=== PATIENT | female | born 1985 | race Caucasian/White ===

== ENCOUNTER 2019-06-07 21:34 | Emergency (ER) | payer OTHER ==
[2019-06-07] MEDS ORDERED: PROMETHAZINE 25 MG/ML VIAL ONE (22:04)
[2019-06-07] MEDS ORDERED: MEPERIDINE HCL 25 MG/0.5 ML ONE ×2 (22:04→23:10)
[2019-06-07] MEDS ORDERED: NA CHLORIDE 0.9% 1,000 ML ONE (22:05)
[2019-06-07 22:20] LABS: Absolute Lymphocytes (CBC) 2.2 K/uL (0.7-4.9); Basophils % 1.2 % (0-1.3); Hematocrit 42.4 % (36.0-45.0); Lymphocytes % 24.4 % (15.3-44.8); MPV 10.2 fL (7.6-11.3); RBC Red Blood Cell Count 4.54 M/uL (3.86-4.86)
[2019-06-07 22:44] LABS: ALT/SGPT 36 U/L (12-78); AST/SGOT 25 U/L (15-37); Albumin 4.3 g/dL (3.4-5.0); Alkaline Phosphatase 97 U/L (45-117); BUN Blood Urea Nitrogen 13 mg/dL (7-18); Bicarbonate 27 mmol/L (21-32); Bilirubin Direct < 0.1 mg/dL (0-0.2); Bilirubin Total 0.3 mg/dL (0.2-1.0); Glucose Level 104 mg/dL (74-106); Lipase 101 U/L (73-393); Potassium 3.8 mmol/L (3.5-5.1); Protein, Total 7.4 g/dL (6.4-8.2); Sodium Level 140 mmol/L (136-145)
[2019-06-07 23:05] LABS: Urine Blood NEGATIVE (NEG); Urine Glucose NEGATIVE (NEG); Urine Protein NEGATIVE (NEG)
--- NOTE | 2019-06-08 00:44 | ER ---
Nurse's Notes [facility] Name: Emma De La Cruz Age: 33 yrs Sex: Female : 1985 Arrival Date: 06/07/2019 Time: 21:37 Bed 27 Private MD: Diagnosis: Right upper quadrant abdominal tenderness;Right upper quadrant pain Presentation: 06/07 21:49 Presenting complaint: states: She has gallstones and started having pain today aj1 at 1930. Reports RUQ pain, denies vomiting. Reports that she has been unable to follow up with a surgeon yet. Transition of care: patient was not received from another setting of care. Onset of symptoms was June 07, 2019 at 19:30. Risk Assessment: Do you want to hurt yourself or someone else? Patient reports no desire to harm self or others. Initial Sepsis Screen: Does the patient meet any 2 criteria? HR > 90 bpm. No. Patient's initial sepsis screen is negative. Does the patient have a suspected source of infection? Yes: Acute abdominal pain. Care prior to arrival: None. 21:49 Method Of Arrival: Wheelchair aj 21:49 Acuity: ANDRÉS 3 aj1 Triage Assessment: 21:54 General: Appears uncomfortable, Behavior is cooperative, anxious, restless. Pain: aj1 Complains of pain in right upper quadrant Pain currently is 10 out of 10 on a pain scale. Neuro: Level of Consciousness is awake, alert, obeys commands. Cardiovascular: Patient's skin is warm and dry. Respiratory: Airway is patent Respiratory effort is even, unlabored, Respiratory pattern is regular, symmetrical. GI: Reports upper abdominal pain, nausea. Historical: - Allergies: 21:54 Sulfa (Sulfonamide Antibiotics); aj1 - Home Meds: 21:54 Lamictal Oral [Active]; Lexapro Oral [Active]; aj1 - PMHx: 21:54 Seizures; gallstones; aj1 - Immunization history:: Flu vaccine is not up to date. - Social history:: Smoking status: Patient/guardian denies using tobacco. - Ebola Screening: : Patient denies travel to an Ebola-affected area in the 21 days before illness onset. Screenin:01 Abuse screen: Denies threats or abuse. Denies injuries from another. Nutritional mg2 screening: No deficits noted. Tuberculosis screening: No symptoms or risk factors identified. Fall Risk IV access (20 points). Assessment: 22:16 General: Appears uncomfortable, Behavior is crying, restless. Pain: Complains of pain tr5 in right upper quadrant Pain currently is 10 out of 10 on a pain scale. Quality of pain is described as crampy, Pain began 2 hours ago. Is continuous. Neuro: Level of Consciousness is awake, alert, obeys commands, Oriented to person, place, time, Weed Inspector are equal bilaterally Moves all extremities. Cardiovascular: Heart tones present Capillary refill < 3 seconds. Respiratory: Airway is patent Respiratory effort is even, unlabored, Respiratory pattern is regular, symmetrical. GI: Reports upper abdominal pain. : No signs and/or symptoms were reported regarding the genitourinary system. EENT: No signs and/or symptoms were reported regarding the EENT system. Derm: No signs and/or symptoms reported regarding the dermatologic system. Musculoskeletal: No signs and/or symptoms reported regarding the musculoskeletal system. 23:50 Reassessment: Patient appears in no apparent distress at this time. Patient and/or tr5 family updated on plan of care and expected duration. Pain level reassessed. Patient is alert, oriented x 3, equal unlabored respirations, skin warm/dry/pink. Patient states feeling better. 06/08 00:52 Reassessment: Patient appears in no apparent distress at this time. No changes from tr5 previously documented assessment. Patient and/or family updated on plan of care and expected duration. Pain level reassessed. Patient is alert, oriented x 3, equal unlabored respirations, skin warm/dry/pink. Vital Signs: 06/07 21:54 BP 125 / 88; Pulse 107; Resp 22; Temp 97.7; Pulse Ox 98% on R/A; Weight 83.01 kg (R); aj1 Height 5 ft. 9 in. (175.26 cm) (R); Pain 05/28; 23:48 BP 102 / 70; Pulse 100; Resp 18; Pulse Ox 99% on R/A; tr5 06/08 00:51 BP 101 / 70; Pulse 98; Resp 18; Pulse Ox 98% on R/A; tr5 06/07 21:54 Body Mass Index 27.02 (83.01 kg, 175.26 cm) [facility] ED Course: 06/07 21:37 Patient arrived in ED. ds1 21:50 Triage completed. aj1 21:54 Arm band placed on Patient placed in an exam room. aj1 21:59 Richard Bush PA is PHCP. jr8 21:59 Lennox Vasquez MD is Attending Physician. jr8 22:00 Anam Mcpherson, RN is Primary Nurse. tr5 22:00 No provider procedures requiring assistance completed. Inserted saline lock: 20 gauge mg2 in right forearm, using aseptic technique. Blood collected. 22:16 Bed in low position. Call light in reach. Side rails up X 1. Adult w/ patient. tr5 22:51 Ultrasound completed. Patient tolerated well. Notified HEAT AND FROST INSULATOR/PA . sg3 22:51 US Abdomen Limited In Process Unspecified. EDMS 22:57 Radiology exam delayed due to test not completed at this time. bq 23:[address] tr5 23:39 CT Abd/Pelvis - IV Contrast Only In Process Unspecified. EDMS 06/08 00:42 Phu Bonds MD is Referral Physician. jr8 01:03 IV discontinued. tr5 Administered Medications: 06/07 22:16 Drug: Demerol 25 mg {Note: RASS:0.} Route: IVP; Site: right antecubital; tr5 22:45 Follow up: Response: Pain is decreased; RASS: Alert and Calm (0) tr5 22:16 Drug: Phenergan 12.5 mg Route: IVP; Site: right antecubital; tr5 22:45 Follow up: Response: Nausea is decreased tr5 22:16 Drug: NS 0.9% 1000 ml Route: IV; Rate: 1000 ml; Site: right antecubital; tr5 23:13 Drug: Demerol 25 mg Route: IVP; Site: right forearm; mg2 06/08 01:03 Follow up: Response: Pain is decreased; RASS: Alert and Calm (0) tr5 01:04 Drug: Demerol 25 mg Route: IVP; Site: right antecubital; tr5 Outcome: 00:43 Discharge ordered by . jr8 01:02 Discharged to home ambulatory, with family. tr5 01:02 Condition: stable 01:02 Discharge instructions given to patient, family, Instructed on discharge instructions, follow up and referral plans. medication usage, Demonstrated understanding of instructions, follow-up care, medications. 01:12 Patient left the ED. tr5 Signatures: Dispatcher [employer] EDMargo Morales RN RN [email or web address] Char Luo Demi ds1 Richard Bush PA PA 8 Evelia Mujica sg3 John Soto RN RN mg2 Anam Mcpherson RN RN tr5
--- NOTE | 2019-06-08 00:45 | EDPHYS ---
Physician Documentation [facility] Name: Emma De La Cruz Age: 33 yrs Sex: Female : 1985 Arrival Date: 06/07/2019 Time: 21:37 Bed 27 Private MD: ED Physician Lennox Vasquez HPI: 06/07 22:15 This 33 yrs old Female presents to ER via Wheelchair with complaints of jr8 Gallstones, Gallbladder Pain. 22:15 The patient presents with abdominal pain in the upper abdomen, in the right upper jr8 quadrant. Onset: The symptoms/episode began/occurred acutely, today. The symptoms do not radiate. Associated signs and symptoms: Pertinent positives: nausea and vomiting. The symptoms are described as stabbing. Modifying factors: The symptoms are alleviated by nothing, the symptoms are aggravated by food. Severity of pain: At its worst the pain was severe in the emergency department the pain is unchanged. The patient has experienced a previous episode, but today's symptoms are worse. The patient has not recently seen a physician. Patient stated that she has history of gallstones about one year ago diagnosed with US. Has been fine since then and had not followed up. Mary had dinner. A little while after had sudden severe RUQ abdominal pain without any relief . Historical: - Allergies: 21:54 Sulfa (Sulfonamide Antibiotics); aj1 - Home Meds: 21:54 Lamictal Oral [Active]; Lexapro Oral [Active]; aj1 - PMHx: 21:54 Seizures; gallstones; aj1 - Immunization history:: Flu vaccine is not up to date. - Social history:: Smoking status: Patient/guardian denies using tobacco. - Ebola Screening: : Patient denies travel to an Ebola-affected area in the 21 days before illness onset. ROS: 22:15 Constitutional: Negative for body aches, fever. jr8 22:15 Abdomen/GI: Positive for abdominal pain, nausea and vomiting, Negative for diarrhea. 22:15 All other systems are negative. Exam: 22:15 Eyes: Pupils equal round and reactive to light, extra-ocular motions intact. Lids and jr8 lashes normal. Conjunctiva and sclera are non-icteric and not injected. Cornea within normal limits. Periorbital areas with no swelling, redness, or edema. ENT: Nares patent. No nasal discharge, no septal abnormalities noted. Tympanic membranes are normal and external auditory canals are clear. Oropharynx with no redness, swelling, or masses, exudates, or evidence of obstruction, uvula midline. Mucous membranes moist. Neck: Trachea midline, no thyromegaly or masses palpated, and no cervical lymphadenopathy. Supple, full range of motion without nuchal rigidity, or vertebral point tenderness. No Meningismus. Cardiovascular: Regular rate and rhythm with a normal S1 and S2. No gallops, murmurs, or rubs. Normal PMI, no JVD. No pulse deficits. Respiratory: Lungs have equal breath sounds bilaterally, clear to auscultation and percussion. No rales, rhonchi or wheezes noted. No increased work of breathing, no retractions or nasal flaring. Back: No spinal tenderness. No costovertebral tenderness. Full range of motion. Skin: Warm, dry with normal turgor. Normal color with no rashes, no lesions, and no evidence of cellulitis. MS/ Extremity: Pulses equal, no cyanosis. Neurovascular intact. Full, normal range of motion. Neuro: Awake and alert, GCS 15, oriented to person, place, time, and situation. Cranial nerves II-XII grossly intact. Motor strength 5/5 in all extremities. Sensory grossly intact. Cerebellar exam normal. Normal gait. 22:15 Constitutional: The patient appears alert, awake, in obvious distress, in obvious pain. 22:15 Abdomen/GI: Inspection: abdomen appears normal, Bowel sounds: active, all quadrants, Palpation: soft, in all quadrants, moderate abdominal tenderness, in the epigastric area, severe abdominal tenderness, in the right upper quadrant, voluntary guarding, is elicited in the right upper quadrant, no appreciated organomegaly, Indicators: McBurney's point is not tender, Berkowitz's sign is positive, Rovsing's sign is negative. Vital Signs: 21:54 BP 125 / 88; Pulse 107; Resp 22; Temp 97.7; Pulse Ox 98% on R/A; Weight 83.01 kg (R); aj1 Height 5 ft. 9 in. (175.26 cm) (R); Pain 10; 23:48 BP 102 / 70; Pulse 100; Resp 18; Pulse Ox 99% on R/A; tr5 06/08 00:51 BP 101 / 70; Pulse 98; Resp 18; Pulse Ox 98% on R/A; tr5 06/07 21:54 Body Mass Index 27.02 (83.01 kg, 175.26 cm) aj1 MDM: 06/07 22:00 Patient medically screened. jr8 06/08 00:36 Data reviewed: vital signs, nurses notes, lab test result(s), radiologic studies, CT jr8 scan, ultrasound. Data interpreted: Pulse oximetry: on room air is 99 %. Interpretation: normal. Counseling: I had a detailed discussion with the patient and/or guardian regarding: the historical points, exam findings, and any diagnostic results supporting the discharge/admit diagnosis, lab results, radiology results, the need for outpatient follow up, a general surgeon, a adjunct lecturer, to return to the emergency department if symptoms worsen or persist or if there are any questions or concerns that arise at home. Response to treatment: the patient's symptoms have markedly improved after treatment. ED course: Detailed discussion with patient and that US, CT, and Labs were essentially unremarkable. That her past US showed stone which could have come out but no CBD dilation or labs to show blockage. Recommend HIDA scan at this point. Still GB is most likely cause of pain. Discussed with them that you can have a GB contractility problem that causes the pain that she felt tonight. Recommend GI and surgery f/u. Clear liquid diet for next couple of days to let pain settle down. Patient good with this and knows to come back if worse . 06/07 21:59 Order name: Basic Metabolic Panel; Complete Time: 22:50 [facility] 06/07 21:59 Order name: CBC with Diff; Complete Time: 22:50 8 06/07 21:59 Order name: Creatinine for Radiology; Complete Time: 22:50 8 06/07 21:59 Order name: Hepatic Function; Complete Time: 22:50 8 06/07 21:59 Order name: Lipase; Complete Time: 22:50 [facility] 06/07 22:59 Order name: Urine Dipstick--Ancillary (enter results); Complete Time: 23:15 mw2 06/07 21:59 Order name: US Abdomen Limited 06/07 22:52 Order name: CT Abd/Pelvis - IV Contrast Only [facility] 06/07 22:59 Order name: Urine --Ancillary (enter results); Complete Time: 23:15 mw2 06/07 21:59 Order name: IV Saline Lock; Complete Time: 22:00 jr8 06/07 21:59 Order name: Labs collected and sent; Complete Time: 22:00 jr8 06/07 21:59 Order name: Urine Test (obtain specimen); Complete Time: 22:58 jr8 06/07 21:59 Order name: Urine Dipstick-Ancillary (obtain specimen); Complete Time: 22:58 jr8 Administered Medications: 06/07 22:16 Drug: Demerol 25 mg {Note: RASS:0.} Route: IVP; Site: right antecubital; tr5 22:45 Follow up: Response: Pain is decreased; RASS: Alert and Calm (0) tr5 22:16 Drug: Phenergan 12.5 mg Route: IVP; Site: right antecubital; tr5 22:45 Follow up: Response: Nausea is decreased tr5 22:16 Drug: NS 0.9% 1000 ml Route: IV; Rate: 1000 ml; Site: right antecubital; tr5 23:13 Drug: Demerol 25 mg Route: IVP; Site: right forearm; mg2 06/08 01:03 Follow up: Response: Pain is decreased; RASS: Alert and Calm (0) tr5 01:04 Drug: Demerol 25 mg Route: IVP; Site: right antecubital; tr5 Disposition: 08:35 Co-signature as Attending Physician, Lennox Vasquez MD I agree with the assessment and naila plan of care. Disposition: 06/08/19 00:43 Discharged to Home. Impression: Right upper quadrant abdominal tenderness, Right upper quadrant pain. - Condition is Stable. - Discharge Instructions: Abdominal Pain, Adult, Biliary Colic, Adult, Gallbladder Nuclear Scan, Gallbladder Nuclear Scan, Care After. - Prescriptions for Tylenol- Codeine #3 300-30 mg Oral Tablet - take 2 tablets by ORAL route every 6 hours As needed; 12 tablet. Zofran 4 mg Oral Tablet - take 1 tablet by ORAL route every 12 hours As needed; 20 tablet. - Medication Reconciliation Form, Thank You Letter, Antibiotic Education, Prescription Opioid Use, School release form form. - Follow up: Phu Bonds MD; When: 2 - 3 days; Reason: Recheck today's complaints, Continuance of care, Re-evaluation by your physician. - Problem is new. - Symptoms have improved. Signatures: Dispatcher [employer] EDMargo Morales, RN RN aj1 Lennox Vasquez MD MD cha Roszak, Josh, PA PA jr8 John Soto RN RN mg2 Anam Mcpherson RN RN tr5 Corrections: (The following items were deleted from the chart) 01:12 00:43 06/08/2019 00:43 Discharged to Home. Impression: Right upper quadrant abdominal tr5 tenderness; Right upper quadrant pain. Condition is Stable. Forms are Medication Reconciliation Form, Thank You Letter, Antibiotic Education, Prescription Opioid Use. Follow up: Phu Bonds; When: 2 - 3 days; Reason: Recheck today's complaints, Continuance of care, Re-evaluation by your physician. Problem is new. Symptoms have improved. jr8
[2019-06-08] MEDS ORDERED: MEPERIDINE HCL 25 MG/0.5 ML ONE (00:56)
[2019-06-08] MEDS ORDERED: PROMETHAZINE 25 MG TABLET ONE (01:13)
[2019-06-08] MEDS ORDERED: ONDANSETRON 4 MG (ODT) TAB ONE (01:15)
[2019-06-08 01:18] VITALS: TEMP 97.7
[2019-06-08 01:20] VITALS: BP 101/70; O2SAT 98
--- NOTE | 2019-06-08 07:10 | RAD REPORT ---
EXAM DESCRIPTION: US - Abdomen Exam Limited - 06/07/2019 10:51 pm CLINICAL HISTORY: Abdominal pain. COMPARISON: June 07, 2019 cat scan FINDINGS: The gallbladder is distended. Vague echogenic structure within the gallbladder neck repres ents a stone. Gallbladder wall is not thickened. Common bile duct measures 6 millimeters which is upper limits normal IMPRESSION: Cholelithiasis with gallbladder distention. Common bile duct upper limits normal caliber
--- NOTE | 2019-06-08 10:10 | RAD REPORT ---
EXAM DESCRIPTION: CT - Abdomen Pelvis W Contrast - 06/08/2019 5:37 am CLINICAL HISTORY: 33-year-old female with abdominal pain TECHNIQUE: Axial CT imaging of the abdomen and pelvis was performed following the administration of intravenous contrast.. Sagittal and coronal reconstructed images were then performed. The CT stud y is performed according to ALARA (as low as reasonably achievable) or ALARA/IMAGE GENTLY, with autom atic adjustment of mA and/or kV according to patient size. Performed on: 06/07/2019 at 11:26 PM. COMPARISON: 05/20/2018 FINDINGS: Lung bases: The lung bases are clear. Liver: The liver is normal in size and configuration. No focal hepatic abnormalities are identified. Liver attenuation is within normal limits. Spleen: The spleen is normal is size, configuration and attenuation. Gallbladder and bile duct: The gallbladder is well distended and contains gallstones. There is no b iliary ductal dilatation. Pancreas: The pancreas is grossly normal in size and configuration. Adrenal Glands: The adrenal glands are normal in size and configuration. Kidneys: The kidneys are normal in size and configuration. There is no evidence of hydronephrosis. Th ere is no evidence of nephrolithiasis. No definite solid or cystic renal mass lesions are identified. Stomach: The stomach is grossly normal. There is no definite hiatal hernia. Bowel: The bowel gas pattern is non specific and non obstructive. Appendix: The appendix is normal. Free air: There is no evidence of free air. Free fluid: There is no evidence of free fluid. Vasculature: The aorta is normal in caliber and contour. The inferior vena cava is grossly unremarkab le. Lymphadenopathy: No pathologic lymphadenopathy is identified. There are a few small retroperitoneal l ymph nodes. Bladder: The bladder is well distended and smooth in contour. Reproductive: The uterus is grossly within normal limits. Bones: No acute osseous abnormalities are identified. There are sclerotic changes along the iliac por tions of the sacroiliac joints bilaterally slightly greater on the right likely reflecting osteitis c ondensans ilii. Soft tissues: No focal soft tissue abnormalities are identified. IMPRESSION: 1. Cholelithiasis without evidence of biliary ductal dilatation. 2. Bilateral osteitis condensans ilii. 3. Otherwise, unremarkable contrast-enhanced CT scan of the abdomen and pelvis. There is no evidence of acute intra-abdominal or intrapelvic pathology. Electronically signed by: Mary Heller DO 06/07/2019 11:54 PM CDT Due to temporary technical issues with the PACS/Fluency reporting system, reports are being signed by the in house radiologist as a courtesy to ensure prompt reporting. The interpreting radiologist is f ully responsible for the content of the report.
== END 2019-06-08 01:12 | disposition home or self-care (01) ==
LOC: ER 21:34
DX: R10.811 Right upper quadrant abdominal tenderness (principal); G40.909 Epilepsy, unspecified, not intractable, without status epilepticus; Z88.2 Allergy status to sulfonamides
CPT/HCPCS: 85025; 80048; 36415; 81025; 80076; 81003; 83690; 74177; 76705; 96375; 96374; 99284; Q9967; J2550; Q0169; J2175 ×3; J7030

== ENCOUNTER 2019-06-10 08:33 | Day surgery (SDC) | payer OTHER ==
[2019-06-10 08:48] LABS: Absolute Lymphocytes (CBC) 1.6 K/uL (0.7-4.9); Hematocrit 42.8 % (36.0-45.0); Lymphocytes % 23.6 % (15.3-44.8); MPV 10.1 fL (7.6-11.3); RBC Red Blood Cell Count 4.58 M/uL (3.86-4.86)
[2019-06-10 09:12] LABS: Albumin 4.2 g/dL (3.4-5.0); Bilirubin Direct 0.1 mg/dL (0-0.2); Bilirubin Total 0.4 mg/dL (0.2-1.0); Potassium 3.9 mmol/L (3.5-5.1); Protein, Total 7.6 g/dL (6.4-8.2)
[2019-06-10] MEDS ORDERED: Ringers Lactate 1,000 ML IV ONE (09:36)
[2019-06-10] MEDS ORDERED: LIDOCAINE 2% MPF 5 ML VIAL ONE (10:46)
[2019-06-10] MEDS ORDERED: PROPOFOL 200 MG/20 ML VIAL IV ONE (10:46)
[2019-06-10] MEDS ORDERED: GLYCOPYRROLATE 0.2 MG/ML SYR ONE (10:46)
[2019-06-10] MEDS ORDERED: ROCURONIUM 50 MG/5 ML VIAL IV ONE (10:46)
[2019-06-10] MEDS ORDERED: FENTANYL CITR 250 MCG/5 ML ONE (10:47)
[2019-06-10] MEDS ORDERED: MIDAZOLAM HCL 2 MG/2 ML INJ ONE (10:47)
[2019-06-10] MEDS: CEFOXITIN/SWI 1gm 1 GM/10 ML SYR ONE ×2 (11:03→11:05)
--- NOTE | 2019-06-10 11:43 | P.BOP ---
Preoperative diagnosis: acute cholecystitis, symptomatic cholelithiasis Postoperative diagnosis: same Primary procedure: Laparoscopic cholecystectomy Textile Pin Worker: Ana Luisa Martin (Rashawn) Estimated blood loss: <10cc Specimen: gb Findings: as above Anesthesia: General Complications: None Transferred to: Recovery Room Condition: Good
[2019-06-10] MEDS ORDERED: NEOSTIGMINE 1 MG/ML -10 ML VIAL ONE ×2 (11:44→11:56)
[2019-06-10] MEDS ORDERED: ONDANSETRON 4 MG/2 ML VIAL ONE ×2 (11:45→13:01)
[2019-06-10] MEDS ORDERED: HYDROMORPHONE HCL 1 MG/ML INJ ONE (13:03)
[2019-06-10] MEDS ORDERED: PROMETHAZINE 25 MG/ML VIAL ONE (13:09)
[2019-06-10] MEDS ORDERED: METOCLOPRAMIDE 10 MG/2mL INJ ONE (14:27)
[2019-06-10 15:25] VITALS: BP 107/75; TEMP 97.7; O2SAT 98
== END 2019-06-10 14:50 | disposition home or self-care (01) ==
LOC: OR 08:33
PROVIDERS: ATTEND Surgery
PROC: 0FT44ZZ Resection of Gallbladder, Percutaneous Endoscopic Approach (ICD-10-PCS; principal; 2019-06-10 11:45)
DX: K80.12 Calculus of gallbladder with acute and chronic cholecystitis without obstruction (principal); F41.9 Anxiety disorder, unspecified; F32.9 Major depressive disorder, single episode, unspecified; Z88.2 Allergy status to sulfonamides; Z88.8 Allergy status to other drugs, medicaments and biological substances; Z80.49 Family history of malignant neoplasm of other genital organs
CPT/HCPCS: 85025; 80048; 36415; 82150; 84703; 80076; 88304; 83690; 47562; J2704; J2710 ×2; J2765; J2550; J2250; J3010; J1170; J7120; J2405 ×2